=== PATIENT | female | born 1995 | race Caucasian/White ===

== ENCOUNTER 2017-09-17 19:04 | Emergency (ER) | END 2017-09-18 01:36 | disposition home or self-care (01) ==

== ENCOUNTER 2017-10-04 05:56 | Emergency (ER) | END 2017-10-04 07:15 | disposition home or self-care (01) ==

== ENCOUNTER 2018-02-03 12:26 | Emergency (ER) | END 2018-02-03 14:35 | disposition home or self-care (01) ==